=== PATIENT | male | born 1945 | race Caucasian/White ===

== ENCOUNTER 2019-07-09 12:12 | Emergency (ER) | payer OTHER ==
[~2019-07-09] VITALS: Ht 170.2 cm; Wt 85.7 kg
[2019-07-09 13:16] LABS: ABSOLUTE BASOPHILS 0.1 thou/uL (0.0-0.2); ABSOLUTE EOSINOPHILS 0.2 thou/uL (0.0-0.7); ABSOLUTE LYMPHOCYTES 1.3 thou/uL (0.8-5.3); ABSOLUTE MONOCYTES 0.6 thou/uL (0.0-1.2); ABSOLUTE NEUTROPHILS 4.9 thou/uL (1.6-8.1); BASOPHILS 0.7 %; EOSINOPHILS 2.8 %; HEMATOCRIT 43.5 % (42.0-52.0); HEMOGLOBIN 14.8 gm/dL (14.0-18.0); LYMPHOCYTES 18.7 %; MCH 31.3 pg (26.0-34.0); MCV 92.1 fL (80.0-100.0); MONOCYTES 8.5 %; MPV 9.8 fl. (7.2-11.1); NUCLEATED RBCS 0 /100WBC; PLATELET COUNT* 165 thou/uL (150-400); POLYS 69.3 %; RBC 4.72 mil/uL (4.50-6.00); RDW-CV 14.4 % (10.5-14.5)
[2019-07-09 13:22] LABS: CALCIUM 8.7 mg/dL (8.5-10.1); CREATININE 1.6 mg/dL (0.6-1.3); POTASSIUM 5.1 mmol/L (3.5-5.1)
[2019-07-09 13:32] LABS: ALBUMIN 3.4 g/dL (3.4-5.0); TOTAL BILIRUBIN 0.7 mg/dL (<0.1-1.0); TOTAL PROTEIN 7.3 g/dL (6.4-8.2)
[2019-07-09] MEDS ORDERED: METFORMIN HCL500 M3 PO (13:45)
[2019-07-09] MEDS ORDERED: KEFLEX500 M1 PO (13:45)
[2019-07-09 14:55] VITALS: BP 133/84
--- NOTE | 2019-07-10 12:56 | EKG ---
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1945 Requested By: Eulogio Deng Order Number: [id number] MD: Jose Jewell Measurements Intervals [place] Rate: 74 P: [place]: QRS: 6 QRSD: 109 T: 142 QT: 376 QTc: 418 Interpretive Statements Atrial fibrillation Low voltage, extremity leads Repol abnrm suggests ischemia, anterolateral No previous ECG available for comparison Electronically Signed On 07-10-2019 12:55:46 TELEVISION JOURNALIST by Jose Jewell [email or web address] <ELECTRONICALLY SIGNED> By: Priscilla Jewell MD, [facility] 07/10/19 1255 1252 1252 Priscilla Jewell MD, FACC /EPI
== END 2019-07-09 14:57 | disposition left against medical advice (07) ==
LOC: M.ERS 12:12
PROVIDERS: Emergency Medicine Emergency Medical Services
DX: I11.0 Hypertensive heart disease with heart failure (principal); I50.9 Heart failure, unspecified; I48.91 Unspecified atrial fibrillation; M79.89 Other specified soft tissue disorders; E11.9 Type 2 diabetes mellitus without complications; Z88.0 Allergy status to penicillin

== ENCOUNTER 2019-07-12 10:57 | Inpatient (IN) | payer OTHER ==
[~2019-07-12] VITALS: Ht 17.8 cm; Wt 86.2 kg
[~2019-07-12 10:57] MED LIST: KEFLEX500 M1 PO; METFORMIN HCL500 M3 PO
[2019-07-12 11:05] VITALS: BP 138/90
[2019-07-12 11:36] LABS: ABSOLUTE BASOPHILS 0.1 thou/uL (0.0-0.2); ABSOLUTE EOSINOPHILS 0.3 thou/uL (0.0-0.7); ABSOLUTE LYMPHOCYTES 1.3 thou/uL (0.8-5.3); ABSOLUTE MONOCYTES 0.6 thou/uL (0.0-1.2); ABSOLUTE NEUTROPHILS 3.8 thou/uL (1.6-8.1); BASOPHILS 1.2 %; EOSINOPHILS 4.6 %; HEMATOCRIT 43.4 % (42.0-52.0); HEMOGLOBIN 15.1 gm/dL (14.0-18.0); MCH 31.7 pg (26.0-34.0); MCHC 34.8 g/dL (28.0-37.0); MONOCYTES 9.8 %; MPV 9.7 fl. (7.2-11.1); NUCLEATED RBCS 0 /100WBC; PLATELET COUNT* 170 thou/uL (150-400); POLYS 63.4 %; RBC 4.77 mil/uL (4.50-6.00); RDW-CV 14.3 % (10.5-14.5)
[2019-07-12 11:48] LABS: CALCIUM 8.7 mg/dL (8.5-10.1); CREATININE 1.5 mg/dL (0.6-1.3); POTASSIUM 4.4 mmol/L (3.5-5.1)
[2019-07-12 11:57] LABS: ALBUMIN 3.5 g/dL (3.4-5.0); TOTAL BILIRUBIN 0.8 mg/dL (<0.1-1.0); TOTAL PROTEIN 7.5 g/dL (6.4-8.2)
[2019-07-12 12:08] LABS: APTT 28.2 Seconds (25.0-31.3)
[2019-07-12 12:28] LABS: INR 1.1; PROTIME 11.2 Seconds (9.20-11.50)
--- NOTE | 2019-07-12 15:17 | EKG ---
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1945 Requested By: Danny Delcid Order Number: [id number] MD: James Joseph Measurements Intervals [place] Rate: 106 P: AR: QRS: -10 QRSD: 112 T: 129 QT: 355 QTc: 472 Interpretive Statements Atrial fibrillation Low voltage, extremity leads Nonspecific ST segment depression consider ischemia Baseline wander in lead(s) V3 Compared to ECG 07/09/2019 12:52:31 no significant changes noted Electronically Signed On 07-12-2019 15:17:31 PNEUMATIC TOOL REPAIRER by James Joseph [email or web address] <ELECTRONICALLY SIGNED> By: James Joseph MD, FACC 07/12/19 1517 1138 1138 James Joseph MD, FAC /EPI
[2019-07-12 16:30] VITALS: BP 125/83
[2019-07-12 20:00] VITALS: BP 114/77
[2019-07-13] VITALS: BP 90/53
[2019-07-13 04:00] VITALS: BP 127/72
[2019-07-13 08:00] VITALS: BP 128/62
[2019-07-13 12:30] VITALS: BP 108/67
[2019-07-13 16:00] VITALS: BP 93/57
--- NOTE | 2019-07-13 17:23 | 2DMMODE ---
[place] [address] 2 D/M-MODE ECHOCARDIOGRAM Name: NAT LOPEZ Room: [address] IN [facility]#: [id number] Admission: 07/12/19 Attend Phys: Wesley Camejo Discharge: Date of : 41 Date of Service: 07/13/19 1723 Report #: [id number] THIS REPORT FOR: //name// APPROVED REPORT Study performed: 07/13/2019 14:59:14 EXAM: Comprehensive 2D, Doppler, and color-flow Echocardiogram Patient Location: In-Patient Room #: [facility] Status: routine BSA: 1.93 HR: 79 bpm BP: 113/65 mmHg Rhythm: NSR Other Information Study Quality: Good Indications Congestive Heart Failure 2D Dimensions IVSd: 9.07 (7-11mm) LVOT Diam: 20.44 (18-24mm) LVDd: 59.36 mm PWd: 6.36 (7-11mm) Ascending Ao: 34.24 (22-36mm) LVDs: 52.71 (25-40mm) Aortic Root: 29.65 mm Volumes Left Atrial Volume (Systole) LA ESV Index: 47.20 mL/m2 Aortic Valve AoV Peak Alejandro.: 1.23 m/s AO Peak Gr.: 6.08 mmHg LVOT Max P.05 mmHg AO Mean Gr.: 3.73 mmHg LVOT Mean P.16 mmHg LVOT Max V: 0.72 m/s AO V2 VTI: 19.02 cm LVOT Mean V: 0.51 m/s GALI (VTI): 2.06 cm2 LVOT V1 VTI: 11.93 cm TDI Lateral E' Alejandro.: 0.08 m/[place] [address] 2 D/M-MODE ECHOCARDIOGRAM Name: NAT LOPEZ Room: [address]#: [id number] Admission: 07/12/19 Attend Phys: Wesley Camejo Discharge: Date of : 41 Date of Service: 07/13/19 1723 Report #: [id number] PV Peak Alejandro.: 0.71 m/s PV Peak Gr.: 1.99 mmHg Tricuspid Valve RAP Estimate: 5.00 mmHg TR Peak Gr.: 32.97 mmHg RVSP: 37.00 mmHg PA Pressure: 37.00 mmHg Left Ventricle Left ventricle is mildly dilated. There is severe global hypokinesis of the left ventricle. Mild concentric left ventricular hypertrophy. Left ventricular systolic function is severely decreased. LVEF is 20-25%. This study is not technically sufficient to allow evaluation of the LV diastolic function due to atrial fibrillation. Right Ventricle The right ventricle is normal size. The right ventricular systolic function is normal. Atria Left atrium is moderately dilated. The right atrium size is normal. Aortic Valve Mild aortic valve sclerosis. Trace aortic regurgitation. There is no aortic valvular stenosis. Mitral Valve The mitral valve is normal in structure. Moderate mitral regurgitation. No evidence of mitral valve stenosis. Tricuspid Valve The tricuspid valve is normal in structure. Moderate tricuspid regurgitation. estimated pa pressure 45 mm Hg Pulmonic Valve The pulmonary valve is normal in structure. Trace pulmonic regurgitation. Great Vessels The aortic root is normal in size. IVC is normal in size and collapses >50% with inspiration. Pericardium There is no pericardial effusion. <Conclusion> [place] [address] 2 D/M-MODE ECHOCARDIOGRAM Name: NAT LOPEZ Lance Room: [address]#: [id number] Admission: 07/12/19 Attend Phys: Welsey Camejo Discharge: Date of : 41 Date of Service: 07/13/191722 Report #: [id number] Left ventricle is mildly dilated. Mild concentric left ventricular hypertrophy. LVEF is 20-25%. Left atrium is moderately dilated. Moderate mitral regurgitation. Moderate tricuspid regurgitation. estimated pa pressure 45 mm Hg <ELECTRONICALLY SIGNED> By: Ramón Streeter MD, [facility] 07/13/191722 22 22 Ramón Streeter MD, FAC /INF
[2019-07-13 18:06] LABS: CHOLESTEROL 122 mg/dL (<200); HDL CHOLESTEROL 31 mg/dL (>40); LDL CHOLESTEROL 81 mg/dL (<100); TC:HDL 3.9 Ratio (Not establshd); TRIGLYCERIDE 54 mg/dL (<150); VLDL 11 mg/dL (<40)
[2019-07-13 18:07] LABS: SERUM ASSESSMENT Clear
[2019-07-13 20:00] VITALS: BP 128/62
[2019-07-14] VITALS (7 sets, daily range): BP systolic 94–123; BP diastolic 43–73
[2019-07-14 07:40] LABS: GLYCOHEMOGLOBIN (HGB A1C) 6.6 % (4.8-5.6)
[2019-07-14 12:53] LABS: ALBUMIN 3.2 g/dL (3.4-5.0); CALCIUM 8.5 mg/dL (8.5-10.1); CREATININE 1.7 mg/dL (0.6-1.3); PHOSPHORUS* 4.7 mg/dL (2.5-4.9); POTASSIUM 4.3 mmol/L (3.5-5.1)
[2019-07-15] VITALS (9 sets, daily range): BP systolic 108–141; BP diastolic 54–78
[2019-07-15 04:36] LABS: CALCIUM 8.3 mg/dL (8.5-10.1); CREATININE 1.9 mg/dL (0.6-1.3); POTASSIUM 4.9 mmol/L (3.5-5.1)
[2019-07-15 04:39] LABS: INR 1.1; PROTIME 11.3 Seconds (9.20-11.50)
--- NOTE | 2019-07-15 10:20 | CON ---
[address] [address] CONSULTATION Name: NAT LOPEZ Room: [address] IN .R.#: [id number] Admission: 07/12/19 Attend Phys: Sandrine Christian Discharge: Date of : 41 Report #: [id number] THIS REPORT FOR: //name// CC: Alvin Camejo DATE OF SERVICE: 07/13/2019 HISTORY OF PRESENT ILLNESS: The patient is a 74-year-old single white male who I was asked to see in the hospital today after a complaint of being short of breath. The patient states that he actually had an episode of atrial fibrillation in the past and was cardioverted at [facility]. He is on warfarin for a period of time, but then switched to aspirin. Recently, he has had increasing shortness of breath. He has been coughing. He has been waking up at night short of breath. He has swelling of his feet. Because of these complaints, he actually went to the Emergency Room yesterday. He was noted to have a sore on the anterior tibial area of his left leg. The wound was cleared and wrappings were applied. He was transferred to a monitored bed and I was asked to see him for further evaluation and treatment. Denied any chest pain, palpitation or syncope. PAST MEDICAL HISTORY: He has had hernia repair, hypertension, and diabetes. MEDICATIONS: Consist of lisinopril, metformin. ALLERGIES: HE HAS AN ALLERGY TO PENICILLIN. FAMILY HISTORY: His mother and father had heart disease. SOCIAL HISTORY: He is . 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 No smoking or alcohol abuse. REVIEW OF SYSTEMS: He has had no history of stroke, asthma, peptic ulcer disease, liver disease, kidney disease, cancer, psychiatric illness. PHYSICAL EXAMINATION: GENERAL: Revealed a disheveled elderly male, lying in bed, appeared in no distress. VITAL SIGNS: He had a blood pressure of 100/70, pulse is 80, he is afebrile. HEENT: He was anicteric. Conjunctivae pink. Mucous members are moist. NECK: Neck veins are difficult to assess. CHEST: Revealed decreased breath sounds at bases. CARDIOVASCULAR: Irregular rhythm. ABDOMEN: Soft. EXTREMITIES: Had wrappings on both [place] [address] CONSULTATION Name: JESSICAJAMAAL HALLNAT L Room: [address]#: [id number] Admission: 07/12/19 Attend Phys: Sandrine Christian Discharge: Date of : 41 Report #: [id number] RADIOLOGICAL DATA: His ECG on admission showed atrial fibrillation with occasional aberrantly conducted complexes. His chest x-ray showed cardiomegaly, bilateral interstitial pulmonary edema, and small effusions. He had a venous duplex scan of the legs that showed no evidence of DVT. LABORATORY WORK: Sodium 138, BUN 20, creatinine 1.5. BNP 13,514, troponin 0.06. His white blood cell count 6.0, hemoglobin 15.1. IMPRESSION AND RECOMMENDATIONS: 1. Acute diastolic heart failure. Recommend echocardiogram. I would give Lasix. 2. Staph infection of his leg. 3. Diabetes. 4. Hypertension. The patient has been on AMIE inhibitor. 5. Diabetes. 6. Chronic kidney disease. <ELECTRONICALLY SIGNED> By: Ramón Streeter MD, FACC 07/15/19 1020 1632 [id number] Streeter MD, FACC /nt
[2019-07-16 04:00] VITALS: BP 119/74
[2019-07-16 05:10] LABS: CALCIUM 8.6 mg/dL (8.5-10.1); CREATININE 1.5 mg/dL (0.6-1.3); INR 1.2; POTASSIUM 4.5 mmol/L (3.5-5.1)
[2019-07-16 08:45] VITALS: BP 130/61
[2019-07-16 11:30] VITALS: BP 124/71
[2019-07-16 16:00] VITALS: BP 153/73
[2019-07-16 20:00] VITALS: BP 121/82
[2019-07-17] VITALS: BP 143/66
[2019-07-17 03:55] VITALS: BP 138/89
[2019-07-17 05:06] LABS: CALCIUM 8.8 mg/dL (8.5-10.1); CREATININE 1.5 mg/dL (0.6-1.3); POTASSIUM 4.4 mmol/L (3.5-5.1)
[2019-07-17 05:10] LABS: INR 1.2; PROTIME 12.7 Seconds (9.20-11.50)
[2019-07-17 11:43] VITALS: BP 137/71
[2019-07-17 13:35] VITALS: BP 116/56
[2019-07-17 13:41] VITALS: BP 116/56
[2019-07-17 20:10] VITALS: BP 136/82
[2019-07-18 00:21] VITALS: BP 132/76
[2019-07-18 04:02] VITALS: BP 125/55
[2019-07-18 04:26] LABS: INR 1.4; PROTIME 14.3 Seconds (9.20-11.50)
[2019-07-18 08:00] VITALS: BP 157/66
[2019-07-18 09:40] VITALS: BP 157/66
[2019-07-18] MEDS ORDERED: COREG6.25 MG PO (13:32)
[2019-07-18] MEDS ORDERED: COUMADIN7.5 MG PO (13:33)
[2019-07-18] MEDS ORDERED: COZAAR 25MG TAB25 M1 PO (13:34)
[2019-07-18] MEDS ORDERED: FUROSEMIDE 40 M40 MG PO (13:35)
[2019-07-18] MEDS ORDERED: SPIRONOLACTONE25 MG PO (13:37)
--- NOTE | 2019-07-19 09:30 | EKG ---
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: : 1945 Requested By: Wesley Camejo Order Number: [id number] MD: James Joseph Measurements Intervals [place] Rate: 95 P: [place]: QRS: 5 QRSD: 96 T: 164 QT: 344 QTc: 433 Interpretive Statements Atrial fibrillation Abnormal T, consider ischemia, lateral leads Compared to ECG 07/12/2019 11:38:42 T-wave abnormality now present Possible ischemia still present Electronically Signed On 07-19-2019 9:30:31 WIRE STRIPPING MACHINE OPERATOR by James Joseph [email or web address] <ELECTRONICALLY SIGNED> By: James Joseph MD, FACC 07/19/19 0930 1104 1104 James Joseph MD, FACC /EPI
== END 2019-07-18 15:30 | disposition home or self-care (01) | DRG 602 ==
LOC: M.ERS 10:57 → M.TBA-ER 12:46 → M.2W 12:46
PROVIDERS: Family Medicine; Internal Medicine; Internal Medicine Cardiovascular Disease; ADMIT Internal Medicine
DX: L03.116 Cellulitis of left lower limb (principal); J96.01 Acute respiratory failure with hypoxia; N17.0 Acute kidney failure with tubular necrosis; I50.43 Acute on chronic combined systolic (congestive) and diastolic (congestive) heart failure; I13.0 Hypertensive heart and chronic kidney disease with heart failure and stage 1 through stage 4 chronic kidney disease, or unspecified chronic kidney disease; R65.10 Systemic inflammatory response syndrome (SIRS) of non-infectious origin without acute organ dysfunction; I48.19 Other persistent atrial fibrillation; L03.115 Cellulitis of right lower limb; E11.22 Type 2 diabetes mellitus with diabetic chronic kidney disease; N18.9 Chronic kidney disease, unspecified; Z79.01 Long term (current) use of anticoagulants; Z82.49 Family history of ischemic heart disease and other diseases of the circulatory system; Z88.0 Allergy status to penicillin; Z83.3 Family history of diabetes mellitus

== ENCOUNTER 2021-01-17 16:35 | Emergency (ER) | payer MEDICARE ==
[~2021-01-17] VITALS: Ht 167.6 cm; Wt 93.0 kg
[~2021-01-17 16:35] MED LIST changes: +COREG6.25 MG PO; +COUMADIN7.5 MG PO; +COZAAR 25MG TAB25 M1 PO; +FUROSEMIDE 40 M40 MG PO; +SPIRONOLACTONE25 MG PO
[2021-01-17] MEDS ORDERED: CELEXA 20 MG TA20 MG PO (16:49)
[2021-01-17] MEDS ORDERED: LAMICTAL 25 MG25 MG PO (16:50)
[2021-01-17 18:05] VITALS: BP 142/77
== END 2021-01-17 18:06 | disposition home or self-care (01) ==
LOC: M.ERS 16:35
DX: S16.1XXA Strain of muscle, fascia and tendon at neck level, initial encounter (principal); S00.33XA Contusion of nose, initial encounter; I11.0 Hypertensive heart disease with heart failure; I50.9 Heart failure, unspecified; E11.9 Type 2 diabetes mellitus without complications; I48.91 Unspecified atrial fibrillation; Z88.0 Allergy status to penicillin; Z79.01 Long term (current) use of anticoagulants; Z79.899 Other long term (current) drug therapy; Z98.890 Other specified postprocedural states; W01.0XXA Fall on same level from slipping, tripping and stumbling without subsequent striking against object, initial encounter; Y93.89 Activity, other specified; Y92.89 Other specified places as the place of occurrence of the external cause; Y99.9 Unspecified external cause status